=== PATIENT | female | born 1965 | race Caucasian/White ===

== ENCOUNTER 2022-10-29 00:43 | Day surgery (SDC) | payer OTHER, SELFPAY ==
[2022-10-22 10:18] VITALS: BMI 40.0
--- NOTE | 2022-10-28 13:15 | PM.HPGS ---
History of Present Illness History of Present Illness Consent: Risks, benefits, and alternatives have been discussed and questions answered. Patient agrees to proceed with procedure. Chief complaint: positive cologuard Narrative: Nilda Stroud is a 57 year old female who was referred for colon cancer screening. She performed a Cologuard test which was positive. I performed a colonoscopy 7 years ago. That time she had diverticulosis and some focal inflammation in the descending colon.She has had a history of having had polyps prior to that. Review of Systems Review of Systems: All systems reviewed & are unremarkable except as noted in HPI and below PMFSH Past Medical History Medical History Acute low back pain Acute right ankle pain B12 deficiency Body mass index [BMI] 38.0-38.9, adult (07/29/18) Body mass index [BMI] 39.0-39.9, adult (08/22/18) Body mass index [BMI] 40.0-44.9, adult (10/24/18) Cervicalgia Chondromalacia of both patellae Chondromalacia patellae, left knee Chronic pain of left knee Complete tear of right rotator cuff Complex tear of medial meniscus of left knee as current injury Encounter for other specified surgical aftercare Essential (primary) hypertension Fibromyalgia Foot pain, right Non morbid obesity Other chronic pain Other fatigue (12/16/15) Pain of left upper extremity Pes planus Primary osteoarthritis of both knees Primary osteoarthritis, right shoulder (11/04/18) Urinary incontinence Urinary tract infection, site not specified Weight loss Surgical History Surgical History History of cholecystectomy 04/22/2000 History of hysterectomy with bilateral oophorectomy History of shoulder surgery bilateral, 2005 Family History Family History Other Family history of malignant neoplasm Hypertension Social History Social History Smoking status: Never smoker Tobacco type: cigarettes Smoking end date: 09/13/90 Alcohol intake: never Substance use: never Substance use type: does not use Lack of Transportation: No Lack of Food: Never True Current Housing: I Have Housing Concerned About Future Housing: No Difficulty Paying Gas/Electric Bills: No Difficulty Paying for Meds: No Currently Unemployed: No Difficulty w/ Childcare or Family Care: No Living arrangements: with family Occupation/Education: occupation Gender identity (if verbalized by the patient): Female Sexual Orientation (if Verbalized by the Patient): Straight or Heterosexual Spiritual care concerns: No Meds Home Medications and Allergies Home Medications Medication Instructions Recorded Confirmed Type famotidine 20 mg tablet 20 mg PO BID PRN Acid Reflux 07/03/21 10/29/22 History valacyclovir 1 gram tablet 1,000 mg PO DAILY PRN FEVER 09/11/21 10/29/22 History BLISTERS levothyroxine 25 mcg tablet 25 mcg PO DAILY #90 tabs 06/18/22 10/29/22 Rx oxybutynin chloride 5 mg 5 mg PO DAILY #90 tabs 07/31/22 10/29/22 Rx tablet,extended release 24 hr conjugated estrogens 0.625 mg 0.625 mg PO DAILY #90 tabs 08/19/22 10/29/22 Rx tablet (Premarin) bupropion HCl 200 mg tablet,12 hr 200 mg PO HS #90 tabs 08/26/22 10/29/22 Rx sustained-release duloxetine 60 mg capsule,delayed 60 mg PO DAILY #90 caps 08/31/22 10/29/22 Rx release lorazepam 0.5 mg tablet 0.5 mg PO DAILY PRN Anxiety #90 09/08/22 10/29/22 Rx tabs trazodone 50 mg tablet 50 mg PO QHS PRN insomnia #90 tabs 09/09/22 10/29/22 Rx acetaminophen 650 mg tablet 650 mg PO Q6H PRN Pain 10/22/22 10/29/22 History amlodipine 5 mg-benazepril 10 mg 1 cap PO HS 10/22/22 10/29/22 History capsule Allergies Allergy/AdvReac Type Severity Reaction Status Date / Time codeine Allergy Intermediate ITCHING,HIV Verified
[2022-10-29 07:38] VITALS: BP 148/79; PULSE 86; RESP 16; TEMP 36.1; O2SAT 97
[2022-10-29] MEDS: LACTATED RINGERS 1,000 ML 150 ML IV CONT (07:42)
--- NOTE | 2022-10-29 07:58 | WPDANESEPPF ---
Anes - Initial Pre Proc Eval Procedure: Operation Date: 10/29/22 09:00 Proposed Procedures p Colonoscopy - Bentley Livingston MD Date/Time: 10/29/22 07:58 Surgeon: Bentley Livingston MD Pre Op Diagnosis: positive cologuard Patient Data Age: 57 Gender: F Height: 1.52 m Weight: 95.9 kg Last Vital Signs Temp 36.1 C L 10/29/22 07:38 Pulse 86 10/29/22 07:38 Resp 16 10/29/22 07:38 BP 148/79 H 10/29/22 07:38 Pulse Ox 97 10/29/22 07:38 O2 Del Method Room Air 10/29/22 07:38 Allergies Allergy/AdvReac Type Severity Reaction Status Date / Time codeine Allergy Intermediate ITCHING,HIV Verified 10/29/22 07:36 ES morphine Allergy Intermediate Hives Verified 10/29/22 07:36 tramadol Allergy Unknown ITCHING Verified 10/29/22 07:36 doxycycline AdvReac Severe Gastrointestinal Verified 10/29/22 07:36 Upset Teunhiy-FIP-VfA Reductase AdvReac Intermediate myalgias Verified 10/29/22 07:36 Inhibitor PROPOXYPHENE NAPSYLATE Allergy Intermediate ITCHING,HIV Uncoded 10/29/22 07:36 ES Home Medications Medication Instructions Recorded Confirmed Type famotidine 20 mg tablet 20 mg PO BID PRN Acid Reflux 07/03/21 10/29/22 History valacyclovir 1 gram tablet 1,000 mg PO DAILY PRN FEVER 09/11/21 10/29/22 History BLISTERS levothyroxine 25 mcg tablet 25 mcg PO DAILY #90 tabs 06/18/22 10/29/22 Rx oxybutynin chloride 5 mg 5 mg PO DAILY #90 tabs 07/31/22 10/29/22 Rx tablet,extended release 24 hr conjugated estrogens 0.625 mg 0.625 mg PO DAILY #90 tabs 08/19/22 10/29/22 Rx tablet (Premarin) bupropion HCl 200 mg tablet,12 hr 200 mg PO HS #90 tabs 08/26/22 10/29/22 Rx sustained-release duloxetine 60 mg capsule,delayed 60 mg PO DAILY #90 caps 08/31/22 10/29/22 Rx release lorazepam 0.5 mg tablet 0.5 mg PO DAILY PRN Anxiety #90 09/08/22 10/29/22 Rx tabs trazodone 50 mg tablet 50 mg PO QHS PRN insomnia #90 tabs 09/09/22 10/29/22 Rx acetaminophen 650 mg tablet 650 mg PO Q6H PRN Pain 10/22/22 10/29/22 History amlodipine 5 mg-benazepril 10 mg 1 cap PO HS 10/22/22 10/29/22 History capsule Patient hx anesthesia problems: none Family hx anesthesia problems: none Results Review: All pre-operative results and documents have been reviewed as part of the pre-operative evaluation. [facility] Past Medical History Medical History Acute low back pain Acute right ankle pain B12 deficiency Body mass index [BMI] 38.0-38.9, adult (07/29/18) Body mass index [BMI] 39.0-39.9, adult (08/22/18) Body mass index [BMI] 40.0-44.9, adult (10/24/18) Cervicalgia Chondromalacia of both patellae Chondromalacia patellae, left knee Chronic pain of left knee Complete tear of right rotator cuff Complex tear of medial meniscus of left knee as current injury Encounter for other specified surgical aftercare Essential (primary) hypertension Fibromyalgia Foot pain, right Non morbid obesity Other chronic pain Other fatigue (12/16/15) Pain of left upper extremity Pes planus Primary osteoarthritis of both knees Primary osteoarthritis, right shoulder (11/04/18) Urinary incontinence Urinary tract infection, site not specified Weight loss Surgical History Surgical History History of cholecystectomy 04/22/2000 History of hysterectomy with bilateral oophorectomy History of shoulder surgery bilateral, 2005 Family History Family History Other Family history of malignant neoplasm Hypertension Social History Social History Smoking status: Never smoker Tobacco type: cigarettes Smoking end date: 09/13/90 Alcohol intake: never Substance use: never Substance use type: does not use Lack of Transportation: No Lack of Food: Never True Current Housing: I Have Housing Concerned About Future
[2022-10-29 09:39] VITALS: BP 120/68; PULSE 74; RESP 15; O2SAT 100
[2022-10-29 09:49] VITALS: BP 127/70; PULSE 73; RESP 14; O2SAT 100
[2022-10-29 09:59] VITALS: BP 139/66; PULSE 73; RESP 20; O2SAT 100
== END 2022-10-29 10:10 | disposition home or self-care (01) ==
PROVIDERS: PCP Physician Assistant Medical; Visit Provider Internal Medicine Gastroenterology
PROC: 0DJD8ZZ Inspection of Lower Intestinal Tract, Via Natural or Artificial Opening Endoscopic (ICD-10-PCS; CPT 45378; principal; 2022-10-29 09:00)
DX: Z12.11 Encounter for screening for malignant neoplasm of colon (principal); K57.30 Diverticulosis of large intestine without perforation or abscess without bleeding; D12.3 Benign neoplasm of transverse colon; K64.8 Other hemorrhoids; R19.5 Other fecal abnormalities; I10 Essential (primary) hypertension; R32 Unspecified urinary incontinence; E66.01 Morbid (severe) obesity due to excess calories; Z68.41 Body mass index [BMI] 40.0-44.9, adult
CPT/HCPCS: 45385; 88305; J2704; J7120

== ENCOUNTER 2023-07-20 13:20 | Outpatient (CLI) | payer OTHER, SELFPAY ==
--- NOTE | ~2023-07-20 | XR_ITS ---
EXAMINATION: XR lg joint inject/asp w image DATE: 07/20/2023 14:39 INDICATION: Left hip arthritis TECHNIQUE: A time-out was performed to verify the patient's name, date of , and procedure to b e performed. The procedure including the risks, benefits, and alternatives was discussed with the pat ient. Risks discussed included bleeding and infection. The patient understood the risks and agreed to proceed. The skin overlying the left hip joint was prepped and draped in usual sterile fashion. An esthetic was administered with 1% lidocaine subcutaneously. A 22 G needle was advanced under fluoros copic guidance into the joint. Injection of 1 mL of Omnipaque 240 confirmed intra-articular position of the needle. Subsequently, injectate consisting of 3 mL of a 2:1 mixture of 0.5% bupivacaine: 80 mg/mL Depo-Medrol for a total dosage of 80 mg Depo-Medrol was instilled. Washout of contrast was seen confirming intra-articular administration. The needle was removed and the entry site was cleaned and dressed. There were no immediate complications. Fluoroscopy exposure time was 0.1 minutes. The tota l number of images was 2. FINDINGS: Real-time fluoroscopy demonstrates the needle in the left hip joint. Patient's pain prior t o procedure:12/21. Patient's pain following the procedure: 2. IMPRESSION: 1. Successful left hip joint injection of local anesthetic and steroid with decrease in the patient's presenting pain. Reviewed, dictated and finalized at location A. NICS TEST TECHNICIAN IMPRESSION: 1. Successful left hip joint injection of local anesthetic and steroid with dec rease in the patient's presenting pain.
== END 2023-07-20 13:21 | disposition home or self-care (01) ==
LOC: ANHIMG 13:25
PROVIDERS: PCP Physician Assistant Medical; Visit Provider Orthopaedic Surgery
DX: M16.12 Unilateral primary osteoarthritis, left hip (principal)
CPT/HCPCS: 20610; 77002; J1040; Q9966

== ENCOUNTER 2023-07-22 09:30 | Outpatient (RCR) | payer OTHER, SELFPAY ==
--- NOTE | 2023-05-06 14:07 | PTOPEVAL1 ---
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 Was diagnosed about a year ago, has a compression pump and compression stocking. Would like to be more active and be on her RAD diet. 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 When goes to get up from sitting has increased pain. Reports has had a hard time recently getting leg up into car. Has been on the meloxicam about 2 weeks and this has really helped. getting up pain doesn't last as long now with the medication. also bed in the mornings with waking up Reported Pain Level Pain Score 0: Self Report Assessment PT Clinical Summary Pt presents with complaints of left hip pain that has persisted the past 1-2 years. Evaluation demo' s decreased ROM with impingement symptoms at end- ranges as well as deficits in hip strength. Pt also shows abnormal LE alignment with possible leg length discrepancy causing increased pressures on the left hip. Pt will benefit from physical therapy to address deficits, improve pain, educate patient on independent fitness activities within capabilities, and improve over health and function. Plan of Care Interventions Electrical Stimulation,Hot Pack/Cold Pack,Manual Therapy,Neuro Re-education,Therapeutic Activities, Therapeutic Exercise,Self-Care/Home Management, Ultrasound PT Services Indicated Yes Treatment Frequency and 1-2 x weekly x 6 weeks Duration These treatments will address the objective and functional deficits as defined above. The patient will be advanced safely and appropriately in order for the patient to progress towards his/her prior level of function. Additional exercises will be introduced and as well as a comprehensive home exercise program upon discharge, if needed, ?to ensure carryover of functional gains achieved in the clinic. This treatment plan has been reviewed and agreement upon by the patient.
--- NOTE | 2023-05-06 14:09 | OPREHPOC ---
Outpatient Therapy Plan of Care This is a Multidisciplinary Plan of Care that may contain components documented by all disciplines (PT, OT, and ST.) PT Problem 1 PT Problem #1 Knowledge Deficit PT Goal 1 Goal Pt will be independent in HEP Pt will verbalize understanding of diagnosis and prognosis Target Visit 8 PT Problem 2 PT Problem #2 Pain PT Goal 1 Goal Pt will report greatest pain level at 3/10 or less Target Visit 8 PT Goal 2 Goal Pt will report resolution of pain Target Visit 12 PT Problem 3 PT Problem #3 Impaired Range of Motion PT Goal 1 Goal Pt will demo PROM of left hip equal to right hip Target Visit 8 PT Problem 4 PT Problem #4 Impaired Strength PT Goal 1 Goal Pt will demo equal strength RLE and LLE in all tested planes PT Goal 2 Goal Pt will demo strength of 4/5 in all tested planes
--- NOTE | 2023-06-15 16:22 | PTOPPROG ---
Assessment and note entered by Marlene Ponce, PT Assessment Status Progress report Diagnosis left hip arthritis, edema unspecified Therapy Conditions pain in left hip, stiffness in hip joint (L) Onset ~1-2 years Subjective Information Was able to start her RAD diet has been on it for 9 days and is seeing benefits. Pt has retired, and does'nt have to sit long periods anymore. Still aches, yesterday was all the way up her back since she woke up. She put ice on it, tried to do some stretches and tried to get up and move a little more, took tylenol. Today is still having the back pain. Had been having improvement in getting leg up in car until yesterday had a hard time. Assessment PT Clinical Summary Pt has been attending therapy consistently for her hip pain related to arthritis. Her pain continues to range from 0-6/10, has been improving in function in previous sessions however has had a small flare up of discomfort last night and today. Demo's overall improved ROM actively and passively, improved strength overall as well. Cont to have capsular tightness posterior especially and gluteus medius weakness thus will benefit from cont therapy to continue progress. Plan of Care Interventions Electrical Stimulation,Hot Pack/Cold Pack,Manual Therapy,Neuro Re-education,Therapeutic Activities, Therapeutic Exercise,Self-Care/Home Management, Ultrasound PT Services Indicated Yes Treatment Frequency and 1-2 x weekly x 4 weeks Duration These treatments will address the objective and functional deficits as defined above. The patient will be advanced safely and appropriately in order for the patient to progress towards his/her prior level of function. Additional exercises will be introduced and as well as a comprehensive home exercise program upon discharge, if needed, ?to ensure carryover of functional gains achieved in the clinic. This treatment plan has been reviewed and agreement upon by the patient.
--- NOTE | 2023-07-16 13:24 | PCPTNOTE ---
The patient treatment was not able to be completed on 07/14/23 due to staffing shortage. Will plan to continue treatment per plan of care.
--- NOTE | 2023-07-22 10:31 | PTOPDC ---
Assessment and note entered by Marlene Ponce, PT Assessment Status Discharge Diagnosis left hip arthritis, edema unspecified Onset ~1-2 years Subjective Information Pt recieved steroid injection 2 days ago. Maybe a little change in hip pain. Certain pains are not there and others are stlil there. Hasn't had to get in the passengers side of the car yet but is doing better than when she started therapy. Pt reports feeling like I got my life back Self-percieved improvement: 70% States is really happy wiht progress, not ready for hip replacement. Wants to be abale to walk 2 miles, wants to get up to 3 miles with moderate pain. Reported Pain Level Pain Score 2: Self Report Assessment PT Clinical Summary Pt reports feeling 70% improved overall. Still gets discomfort at times, but feels the exercises help a lot with her discomfort. Feel like I got my life back . Demo's good ROM with exception of seated internal rotation. Has not made any further improvements in hip strength but is equal to her right hip. Pt is ready to start walking for fitness again. Pt has made significant improvements and is happy with her progress. Thus patient is being discharged for completion of plan of care
== END 2023-07-22 10:36 | disposition home or self-care (01) ==
LOC: ANHHIPT 09:30
PROVIDERS: PCP Physician Assistant Medical; Visit Provider Family Medicine
DX: R60.9 Edema, unspecified (principal); M16.12 Unilateral primary osteoarthritis, left hip
CPT/HCPCS: 97014; 97110; 97112; 97140; 97161; 97530; 97750; G0283